=== PATIENT | female | born 1995 | race Hispanic/Latino ===

== ENCOUNTER 2019-06-13 22:05 | Emergency (ER) | payer OTHER, SELFPAY ==
[2019-06-13 22:10] VITALS: BP 129/81; PULSE 99; RESP 16; TEMP 37; O2SAT 99; BMI 29.6
--- NOTE | 2019-06-13 22:21 | DI.US.S_ITS ---
PROCEDURE: US OB LIMITED INDICATIONS: LLQ PAIN OUTSIDE/PRIOR DATING DATA: Last menstrual period (LMP): Unknown. LMP-based estimated date of delivery (KECIA): Not applicable. First dating scan (date and location): Unknown. Estimated date of delivery (KECIA) from first dating scan: 10/09/19. TECHNIQUE: Real-time scanning was performed of the fetus, with image documentation. Endovaginal scanning: Deferred COMPARISON: None. FINDINGS: A single living intrauterine gestation is present. Presentation: Cephalic. Placenta: Placental position is posterior to the maternal left, without previa. No abruption. Amniotic fluid index: 10.8 cm, normal range is 5-24 cm. heart rate: 131 beats per minute. Maternal cervical canal: 4.0 cm long. Normal lower limit is 2.5 cm. Estimated gestational age from initial scan: 23 weeks, one day. Structure believed to be the left ovary is normal size measuring 2.6 x 2.8 x 3.5 cm. Normal vascularity. No paraovarian fluid. The right ovary is normal measuring 3.3 x 5.0 x 2.6 cm and also demonstrates normal blood flow. No free fluid in the pelvis. IMPRESSION: 1. No sonographic evidence of ovarian torsion. 2. Single intrauterine . 3. No placental abruption and normal amniotic fluid volume. 4. Concordant with preliminary report. Dictated by: Chantel Luna M.D. on 06/14/2019 at 8:32 Approved by: Chantel Luna M.D. on 06/14/2019 at 8:36
--- NOTE | 2019-06-13 23:18 | ED.PREGNANCY ---
HPI - General Chief complaint: OB/Uterine Contractions Stated complaint: pain lwr left quadrant 23wks preg Time Seen by Provider: 06/13/19 22:11 Source: patient Mode of arrival: Family Vehicle Limitations: no limitations History of Present Illness HPI Narrative: 24F nonsmoker with non contributory medical history is at 22 weeks presents with some sharp Left lower pelvic pain over the course of the day. It is very sharp when she moves or lifts her left leg. She denies fever or chills. She has had no nausea or vomiting. She denies any vaginal bleeding, discharge or leakage of fluid. She denies any dysuria, frequency or urgency. She is otherwise well and free of complaint and was sent here by telemedicine[place] MD Complaint: abdominal pain Onset (ago): hour(s) Pain Consistency: intermittent Location: pelvis Severity: moderate Quality: Sharp Radiation: pelvis Relieving factors: rest Exacerbating factors: movement Vaginal discharge: none Vaginal bleeding: none Patient : Yes OB History - Current : no complications OB History - Previous Pregnancies: no complications care: followed by OB Related Data Allergies Allergy/AdvReac Type Severity Reaction Status Date / Time No Known Drug Allergies Allergy Verified 06/13/19 23:31 Review of Systems Constitutional Constitutional: Denies chills, Denies fatigue, Denies fever(s), Denies frequent falls, Denies lethargy and Denies weakness Eyes Eyes: Denies change in vision, Denies eye discharge, Denies irritation and Denies loss of vision ENT Ears, Nose, Mouth, and Throat: Denies change in voice, Denies dizziness, Denies neck pain, Denies sore throat and Denies throat swelling Cardiovascular Cardiovascular: Denies chest pain, Denies irregular heart rhythm, Denies lightheadedness, Denies palpitations, Denies dyspnea, Denies dyspnea on exertion and Denies orthopnea Respiratory Respiratory: Denies cough, Denies dyspnea, Denies dyspnea on exertion and Denies wheezing Gastrointestinal Gastrointestinal: Denies abdominal pain, Denies change in bowel habits, Denies diarrhea, Denies nausea and Denies vomiting Genitourinary Genitourinary: Denies hematuria, Denies flank pain, Denies urinary incontinence and Denies urinary urgency Musculoskeletal Musculoskeletal: Denies back pain, Denies muscle weakness, Denies neck pain, Denies numbness and Denies tingling Integumentary/Breasts Skin/Breast: Denies pruritus, Denies erythema, Denies rash and Denies wounds Neurologic Neurologic: Denies behavioral changes, Denies confusion, Denies dizziness, Denies frequent falls, Denies loss of vision, Denies numbness, Denies tingling and Denies weakness Psychiatric Psychiatric: Denies anxiety, Denies behavioral changes, Denies confusion, Denies depression, Denies homicidal ideation and Denies suicidal ideation Endocrine Endocrine: Denies fatigue, Denies flushing and Denies palpitations Hematologic/Lymphatic Hematologic/Lymphatic: Denies easy bruising Allergic/Immunologic Allergic/Immunologic: Denies urticaria, Denies throat swelling and Denies wheezing PMFSH - Past Medical History Medical history: Reports no medical history Surgical history: Reports no surgical history 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 Well-nourished, well-developed patient, in mild distress. HEAD: Atraumatic. Normocephalic. EYES: Pupils equal round and reactive. Extraocular motions intact. No scleral icterus. No injection or drainage. ENT: Nose without bleeding, purulent drainage. Throat without erythema, tonsillar hypertrophy or exudate. Airway patent. NECK: Trachea midline. Non tender CARDIOVASCULAR: Regular rate and rhythm without murmurs, gallops, or rubs. RESPIRATORY: Clear to auscultation. Breath sounds equal bilaterally. No wheezes, rales, or rhonchi. GASTROINTESTINAL: Gravid above the umbilicus. Tender to palpation in the left lower quadrant, noticeably worse with active flexion of left lower extremity at the hip EXTREMITIES: No edema or joint tenderness. BACK: Nontender without deformity or crepitance. No flank tenderness. NEURO: AOx3. SKIN: No rash or erythema of visible areas Initial Vital Signs Initial Vital Signs: Vital Signs Temperature 98.6 F 06/13/19 22:10 Pulse Rate 99 H 06/13/19 22:10 Respiratory Rate 16 06/13/19 22:10 Blood Pressure 129/81 06/13/19 22:10 Pulse Oximetry 99 06/13/19 22:10 Course Orders Ordered: ED Orders 06/13/19 22:21 US OB limited Stat Vital Signs Vital signs: Vital Signs - 8 hr 06/13/19 22:10 06/13/19 23:29 Temperature 98.6 F Pulse Rate 99 H 78 Respiratory Rate 16 18 Blood Pressure 129/81 111/68 Pulse Oximetry 99 98 MDM - OB/Uterine Contractions Imaging Data US - OB: Radiologist's Impression: No abnormal findings Discharge Plan Departure Patient Disposition: Home Clinical Impression: Acute left lower quadrant pain, Pain of round ligament Discharge Date/Time: 06/13/19 23:31 Instructions: DI for Pelvic Pain Activity Restrictions/Additional Instructions: *You have been diagnosed with [acute left lower pelvic pain, likely from stretching of your round ligament. Ultrasound and exam were very reassuring. Also, I spoke with the [facility] OB doctor whom shared a similar opinion] *What to do: *Take medications as directed *Follow up with your primary care provider in 2-3 days, call for an appointment. Let them know you were seen in the Emergency Department and that we ask that you be seen in follow up *Return to ER if you should have any new, worsening or concerning symptoms Referrals: [facility] [Outside] Obdulia Concepcion MD [Physician] -
[2019-06-13 23:29] VITALS: BP 111/68; PULSE 78; RESP 18; O2SAT 98
== END 2019-06-13 23:31 | disposition home or self-care (01) ==
PROVIDERS: Emergency Provider Emergency Medicine
DX: O26.892 Other specified pregnancy related conditions, second trimester (principal); R10.32 Left lower quadrant pain; N94.9 Unspecified condition associated with female genital organs and menstrual cycle; Z3A.22 22 weeks gestation of pregnancy
CPT/HCPCS: 76815; 99283